=== PATIENT | male | born 1990 ===

== ENCOUNTER 2023-03-11 02:49 | Emergency (ER) | payer OTHER ==
[~2023-03-11] VITALS: Ht 170.2 cm; Wt 77.1 kg
[2023-03-11 03:25] LABS: HEMOGLOBIN 15.3 g/dL (12.0-18.0); MONOCYTES 4.7 % (0-12)
[2023-03-11 03:29] LABS: BASOPHILS 0.2 % (0-2); EOSINOPHILS 0.3 % (0-6); HEMATOCRIT 45.6 % (35.0-50.0); MCH 30.4 (27-36); MCHC 33.7 g/dl (30-36); MCV 90.3 fl (81-99); NEUTROPHILS 87.8 % (39-80); PLATELET COUNT 305 K/uL (140-440); RBC 5.05 M/ul (4.3-5.7); RDW 13.1 (10.5-15.0)
[2023-03-11 03:40] LABS: ALBUMIN 3.9 g/dL (3.4-5.0); ALBUMIN/GLOBULIN RATIO 1.3 (1.1-2.4); ANION GAP 16.5 (7-21); BILIRUBIN, TOTAL 0.2 ng/dL (0.2-1.0); BUN/CREATININE RATIO 11.6 (6.0-28.6); CALCIUM 8.8 mg/dL (8.5-10.1); CREATININE, SERUM 1.12 mg/dL (0.70-1.30); POTASSIUM 3.5 mmol/L (3.5-5.1); PROTEIN, TOTAL 6.9 g/dL (6.4-8.2)
[2023-03-11 04:30] VITALS: BP 134/63
== END 2023-03-11 04:24 | disposition left against medical advice (07) ==
LOC: ED 02:49
PROVIDERS: Internal Medicine
DX: S27.0XXA Traumatic pneumothorax, initial encounter (principal); S05.12XA Contusion of eyeball and orbital tissues, left eye, initial encounter; F10.129 Alcohol abuse with intoxication, unspecified; Y04.0XXA Assault by unarmed brawl or fight, initial encounter; Z53.29 Procedure and treatment not carried out because of patient's decision for other reasons
CPT/HCPCS: 36415; 70450; 70486; 71260; 72125; 74177; 80053; 80307; 85025; 99284-25; G0480; U0002